=== PATIENT | female | born 1945 | race Caucasian/White ===

== ENCOUNTER 2017-12-02 11:50 | Day surgery (SDC) | payer MEDICARE, OTHER ==
[~2017-12-02 11:50] MED LIST: Metoclopramide 10 MG/2 ML SDV IV PRN; Sodium Chloride 0.9% 10 ML Syringe FLUSH PRN
[2017-12-02] MEDS: Sodium Chloride 0.9% 1,000 ML IV SCH (13:27)
[2017-12-02] MEDS ORDERED: Propofol 200 MG/20 ML SDV ONE (14:40)
--- NOTE | 2017-12-02 21:42 | OR ---
DATE OF OPERATION: 12/02/2017 PREOPERATIVE DIAGNOSIS: Screening colonoscopy. POSTOPERATIVE DIAGNOSIS: Screening colonoscopy. PROCEDURE: Colonoscopy. ANESTHESIA: MAC. ESTIMATED BLOOD LOSS: None. COMPLICATIONS: None. INDICATION FOR THE PROCEDURE: The patient is a 71-year-old female, who had a colonoscopy last 11 to 12 years ago. She is here today for a screening colonoscopy. Denies any recent changes to her bowel habits. DESCRIPTION OF PROCEDURE: Informed consent was obtained the from the patient. The patient was taken to the operating room and placed on the table in left lateral decubitus position. Monitored anesthesia care was administered. A digital rectal exam was performed and was normal. Colonoscope was then advanced through the anus and directed towards the cecum identified by appendiceal orifice, as well as ileocecal valve. The colonoscope was then slowly withdrawn. The patient was noted to have moderate diverticulosis throughout the transverse, descending, and sigmoid colon. Both small and large diverticula present. Otherwise, no masses, no polyps, no areas of AV malformations, ischemia or inflammation. Retroflexion performed in the rectum was also normal. Colonoscope was then withdrawn. FINDINGS: Moderate transverse, descending, and sigmoid diverticulosis. RECOMMENDATIONS: Would recommend continued increased water intake as well as high-fiber diet. Would recommend discussion with PCP regarding any further colonoscopies in 10 years. SEAN /[id number]
== END 2017-12-02 16:00 | disposition home or self-care (01) ==
LOC: LB.SDS 11:50
PROVIDERS: ATTEND Surgery
DX: Z12.11 Encounter for screening for malignant neoplasm of colon (principal); K57.30 Diverticulosis of large intestine without perforation or abscess without bleeding; Z88.0 Allergy status to penicillin; Z88.2 Allergy status to sulfonamides; Z98.890 Other specified postprocedural states
CPT/HCPCS: J2704; J7030